=== PATIENT | male | born 1990 | race Caucasian/White ===

== ENCOUNTER 2017-03-24 18:26 | Emergency (ER) | payer OTHER ==
[2017-03-24 18:53] VITALS: BP 115/72
--- NOTE | 2017-03-24 19:03 | UC ---
UC General HPI - HPI Summary HPI Summary: missed 3 unexcused days from work. states he has no medical complaints or concerns wishing a work note to the same so he may return to work - History of Current Complaint Chief Complaint: UCGeneralIllness Stated Complaint: WORK NOTE Time Seen by Provider: 03/24/17 18:33 Hx Obtained From: Patient Current Severity: None - Allergy/Home Medications Allergies/Adverse Reactions: Allergies Allergy/AdvReac Type Severity Reaction Status Date / Time No Known Allergies Allergy Verified 03/24/17 18:52 Home Medications: Home Medications NK [No Home Medications Reported] 03/24/17 [History Confirmed 03/24/17] PMH/Surg Hx/FS Hx/Imm Hx Previously Healthy: Yes - Surgical History Surgical History: None - Family History Known Family History: Positive: None - Social History Occupation: Employed Full-time Lives: With Family Alcohol Use: Rare Substance Use Type: None Smoking Status (MU): Light Every Day Tobacco Smoker Amount Used/How Often: 1/2 ppd Have You Smoked in the Last Year: Yes Cessation Counseling: Counseled 3+Min - 10 Min - Immunization History Most Recent Influenza Vaccination: none Review of Systems Constitutional: Negative Skin: Negative Eyes: Negative ENT: Negative Respiratory: Negative Cardiovascular: Negative Gastrointestinal: Negative Genitourinary: Negative Motor: Negative Neurovascular: Negative Musculoskeletal: Negative Neurological: Negative Psychological: Negative Is Patient Immunocompromised?: No All Other Systems Reviewed And Are Negative: Yes Physical Exam Triage Information Reviewed: Yes Appearance: Well-Appearing, No Pain Distress, Well-Nourished Vital Signs: Initial Vital Signs Pulse 60 03/24/17 18:48 Resp 16 03/24/17 18:48 BP 115/72 03/24/17 18:48 Pulse Ox 100 03/24/17 18:48 Vital Signs Reviewed: Yes Eye Exam: Normal Eyes: Positive: Conjunctiva Clear ENT Exam: Normal ENT: Positive: Normal ENT inspection, Hearing grossly normal. Negative: Nasal congestion, Trismus, Muffled voice, Hoarse voice Dental Exam: Normal Neck exam: Normal Neck: Positive: Supple, Nontender Respiratory Exam: Normal Respiratory: Positive: No respiratory distress, No accessory muscle use Cardiovascular Exam: Normal Cardiovascular: Positive: Brisk Capillary Refill Musculoskeletal Exam: Normal Musculoskeletal: Positive: Strength Intact, ROM Intact, No Edema Neurological Exam: Normal Neurological: Positive: Alert, Muscle Tone Normal Psychological Exam: Normal Skin Exam: Normal Course/Dx - Course Course Of Treatment: nicotine cesasation information, may return to work based on patients statemnt of no medical concerns - Differential Dx - Multi-Symptom Provider Diagnoses: health assessment, nicotine dependent Discharge - Discharge Plan Condition: Stable Disposition: HOME Patient Education Materials: How to Stop Smoking (ED) Forms: *Work Release Referrals: [facility] [Outside] - If Needed
== END 2017-03-24 19:14 | disposition home or self-care (01) ==
LOC: UCCORT 18:26
DX: Z00.8 Encounter for other general examination (principal); F17.210 Nicotine dependence, cigarettes, uncomplicated
CPT/HCPCS: 99201; G0463

== ENCOUNTER 2017-12-10 19:13 | Emergency (ER) | payer OTHER ==
[2017-12-10 20:58] VITALS: BP 107/61
--- NOTE | 2017-12-10 21:32 | UC ---
UC General HPI - HPI Summary HPI Summary: onset of mid abdominal cramping and loose to watery stools on 12/07, one day after concern about eating undercooked pork sausage. No vomiting, no fever, no blood or mucous with stools. Maintaining hydration, eating, has about 4 stools per day. Mid abdominal cramping varies day to day Appendectomy last March. No travel, does not eat unpasteurized dairy products. Rare Etoh use. left work today due to pain - History of Current Complaint Chief Complaint: UCAbdominalPain Stated Complaint: DIARRHEA [employer] Time Seen by Provider: 12/10/17 21:22 Hx Obtained From: Patient Onset/Duration: Sudden Onset, Lasting Days - 4 Timing: Intermittent Episodes Lasting: - hours Onset Severity: Moderate Current Severity: Moderate Pain Intensity: 5 - Allergy/Home Medications Allergies/Adverse Reactions: Allergies Allergy/AdvReac Type Severity Reaction Status Date / Time No Known Allergies Allergy Verified 12/10/17 20:58 PMH/Surg Hx/FS Hx/Imm Hx Previously Healthy: Yes - Surgical History Surgical History: Yes Surgery Procedure, Year, and Place: 03/20 [facility] - Family History Known Family History: Positive: Cardiac Disease, Diabetes - Social History Occupation: Employed Full-time Lives: With Family Alcohol Use: Rare Substance Use Type: None Smoking Status (MU): Light Every Day Tobacco Smoker Amount Used/How Often: 1/2 ppd Have You Smoked in the Last Year: Yes - Immunization History Most Recent Influenza Vaccination: none Review of Systems Constitutional: Fatigue Skin: Negative Eyes: Negative ENT: Negative Respiratory: Negative Cardiovascular: Negative Gastrointestinal: Abdominal Pain, Diarrhea Genitourinary: Negative Motor: Negative Neurovascular: Negative Musculoskeletal: Negative Neurological: Negative Psychological: Negative All Other Systems Reviewed And Are Negative: Yes Physical Exam Triage Information Reviewed: Yes Appearance: Well-Appearing, Pain Distress - mild, Thin Vital Signs: Initial Vital Signs Temp 99 F 12/10/17 20:53 Pulse 77 12/10/17 20:53 Resp 22 12/10/17 20:53 BP 107/61 12/10/17 20:53 Pulse Ox 100 12/10/17 20:53 Vital Signs Reviewed: Yes Eyes: Positive: Conjunctiva Clear ENT: Positive: Pharynx normal Neck: Positive: Supple, Nontender, No Lymphadenopathy Respiratory: Positive: Lungs clear, Normal breath sounds Cardiovascular: Positive: RRR, No Murmur Abdominal Exam: Other - tenderness alan-umbilical area. Umbilical scar, healing well. Abdomen Description: Positive: No Organomegaly, Soft. Negative: CVA Tenderness (R), CVA Tenderness (L), McBurney's Point Tenderness, Peritoneal Signs, Pulsatile Mass, Splenomegaly Psychological Exam: Normal Skin Exam: Normal Course/Dx - Course Course Of Treatment: continue hydration, clear fluids, BRAT diet, stool samples. - Differential Dx - Multi-Symptom Differential Diagnoses: Other - colitis, gastroenteritis. Provider Diagnoses: gastroenteritis. Discharge - Sign-Out/Discharge Documenting (check all that apply): Patient Departure - Discharge Plan Condition: Stable Disposition: HOME Patient Education Materials: Gastroenteritis (ED), Nutrition Tips for Relief of Diarrhea (ED) Referrals: No Primary Care Phys,NOPCP [Primary Care Provider] - Additional Instructions: Please submit stool samples for assessment. If your pain worsens, please go the emergency room for work up and possible imaging. Continue hydration, although I suggest more broth and diluted juices. - Billing Disposition and Condition Condition: STABLE Disposition: Home
== END 2017-12-10 22:06 | disposition home or self-care (01) ==
LOC: UCCORT 19:13
DX: K52.9 Noninfective gastroenteritis and colitis, unspecified (principal); F17.210 Nicotine dependence, cigarettes, uncomplicated
CPT/HCPCS: 99212; G0463